=== PATIENT | female | born 2000 | race Caucasian/White ===

== ENCOUNTER 2024-05-31 09:54 | Emergency (ER) | payer OTHER ==
[~2024-05-31] VITALS: Ht 157.5 cm; Wt 61.4 kg
[2024-05-31 09:59] VITALS: TEMP 98.3
[2024-05-31] MEDS ORDERED: Morphine 4 MG/ML VIAL IV ONE ×2 (10:15→11:00)
[2024-05-31] MEDS ORDERED: Iohexol 300 - 100 ML VIAL IV ONE (10:24)
[2024-05-31] MEDS ORDERED: NS 100 ML IV SCH (10:24)
[2024-05-31] MEDS ORDERED: PERCOCET 325 MG1 TA2 PO (11:39)
[2024-05-31 12:12] VITALS: BP 125/78; PULSE 89
== END 2024-05-31 12:12 | disposition home or self-care (01) ==
LOC: COL.ER 09:54
DX: S32.018A Other fracture of first lumbar vertebra, initial encounter for closed fracture (principal); S32.028A Other fracture of second lumbar vertebra, initial encounter for closed fracture; S32.038A Other fracture of third lumbar vertebra, initial encounter for closed fracture; V58.5XXA Driver of pick-up truck or van injured in noncollision transport accident in traffic accident, initial encounter; Y92.410 Unspecified street and highway as the place of occurrence of the external cause
CPT/HCPCS: J2270; Q9967